=== PATIENT | female | born 1975 | race Caucasian/White ===

== ENCOUNTER → 2016-09-26 | Outpatient (CLI) | payer BC ==
--- NOTE | 2016-09-26 12:07 | US ---
Thyroid Sonography Clinical History: 41-year-old female with acquired hypothyroidism, presenting for follow up of thyroi d nodules. ICD-10 Diagnostic Codes: E04.1, Z00.00, and E03.9. Technique: A linear 12 MHz transducer was used to sonographically evaluate each lobe of the thyroid g land. Color Doppler was also used. Comparison Study: Thyroid sonography, dated July 03, 2015. Findings: Right Thyroid Lobe: This measures 5.2 x 1.9 x 2.1 cm. In the upper pole, there is an oval-shaped hypo echoic nodule, which previously measured 1.2 x 0.6 x 1.2 cm and currently measures 1.5 x 0.6 x 1.0 cm . Given its marginal interval increase in size and the fact that it appears solid, according to [facility] hyroid Nodule Management Guidelines, an ultrasound-guided fine needle aspiration biopsy is now sugges marilyn (as it reaches the threshold of 1.5 cm). In the midpole, there is a relatively stable coarse calc ification, which measures 0.6 x 0.6 x 0.6 cm, and previously measured 0.5 x 0.4 x 0.5 cm. Isthmus: This is normal, measuring 0.35 cm in AP diameter Left Thyroid Lobe: This measures 5.2 x 1.7 x 2.1 cm. In the upper pole, there is a hypoechoic oval-sh aped solid nodule currently measuring 1.5 x 0.6 x 1.1 cm, and previously measuring 1.1 x 0.5 x 1.0 cm . As this reaches the threshold of 1.5 cm, an US-guided fine needle aspiration is suggested. Cursory evaluation of the cervical lymph node chains does not reveal any adenopathy. Impression: Marginal interval increase in the size of hypoechoic nodules seen in the superior poles of each lobe of the thyroid gland. Because these solid lesions now have a threshold measurement of 1. 5 cm, ultrasound-guided fine needle aspirations are suggested (according to [facility] Thyroid Nodule Manage ment Guidelines).
== END ==
LOC: CIMAGING 10:30
PROVIDERS: ATTEND Nurse Practitioner
DX: E04.2 Nontoxic multinodular goiter (principal); E03.9 Hypothyroidism, unspecified
CPT/HCPCS: 76536-PO